=== PATIENT | male | born 1965 | race Two or more races ===

== ENCOUNTER 2017-01-17 12:16 | Emergency (ER) | payer MEDICAID ==
[~2017-01-17] VITALS: Ht 172.7 cm; Wt 74.8 kg
[~2017-01-17 12:16] MED LIST: DOXY100C2 PO; HYDR-3326; LACT1CAP72 PO; LEVO500T15 PO; Xarelto
[2017-01-17] MEDS ORDERED: IBUPROFEN 400 MG TABLET ONE (12:29)
[2017-01-17] MEDS ORDERED: IBUPROFEN 400 MG TABLET PO ONE (12:30)
[2017-01-17 12:41] VITALS: BP 138/92
== END 2017-01-17 13:00 | disposition home or self-care (01) ==
LOC: ER 12:18
DX: L30.9 Dermatitis, unspecified (principal); I87.2 Venous insufficiency (chronic) (peripheral); F17.200 Nicotine dependence, unspecified, uncomplicated; Z76.5 Malingerer [conscious simulation]; Z88.1 Allergy status to other antibiotic agents; Z88.8 Allergy status to other drugs, medicaments and biological substances; Z86.718 Personal history of other venous thrombosis and embolism
CPT/HCPCS: A4606; Z7610